=== PATIENT | female | born 1975 | race Two or more races ===

== ENCOUNTER 2022-04-11 12:53 | Emergency (ER) | payer OTHER ==
[~2022-04-11] VITALS: Ht 154.9 cm; Wt 70.1 kg
[2022-04-11 15:16] VITALS: BP 11/83
[2022-04-11] MEDS ORDERED: IBUP600T28 PO (16:39)
[2022-04-11] MEDS ORDERED: ACETAMINOPHEN 500 MG TAB PO ONE (16:45)
== END 2022-04-11 16:40 | disposition home or self-care (01) ==
LOC: ER 12:53
DX: S06.0X0A Concussion without loss of consciousness, initial encounter (principal); R41.82 Altered mental status, unspecified; X50.1XXA Overexertion from prolonged static or awkward postures, initial encounter; Y93.89 Activity, other specified; Y92.89 Other specified places as the place of occurrence of the external cause; Y99.8 Other external cause status
CPT/HCPCS: 70450